=== PATIENT | male | born 1960 | race Caucasian/White ===

== ENCOUNTER 2017-06-22 22:55 | Emergency (ER) | payer SELFPAY ==
[~2017-06-22] VITALS: Ht 162.6 cm; Wt 102.1 kg
[~2017-06-22 22:55] MED LIST: ALBUTEROL0.09 MG/A1 IH; AMILORIDE/HCTZ1 TAB PO; ATENOLOL50 MG PO; BIAXIN500 MG PO; CIPRO 500MG TA500 MG PO; IBU800 MG PO; KEFLEX 500MG.500 MG PO; LEVAQUIN 750 M750 MG PO; LISINOPRIL40 MG PO; LORTAB 5/500 501 TAB PO; MEDROL 4MG. DOSE4 MG PO; METFORMIN 500M500 MG PO; PROCARDIA10 MG PO; PROVENTIL0.09 MG/AC IH; ROBITUSSIN120 ML/BOT PO; TESSALON PERLE100 MG PO; TESSALON PERLE200 MG PO; ZITHROMAX Z PA250 MG PO
[2017-06-22 23:11] LABS: ALLEN'S TEST PATIENT UNABLE; ARTERIAL ABE -9.7 MMOL/L (-2.4-+2.3); ARTERIAL PO2 58.1 MMHG (80-100); ARTERIAL TCO2 22.6 MMOL/L (23-27)
--- NOTE | 2017-06-22 23:21 | Emergency Room Report ---
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 N Clinical Suspician of Infection? Y Mental Status: 1 - Regular (Normal Baseline) Sepsis Risk:Severe Sepsis Risk Have you (or family members/close friends) recently traveled outside the [place]? N If Yes, where/when: Have you had exposure to infectious disease within the past month? N TB? Other? Specify: Source patient, RN notes reviewed, family, old records Exam Limitations no limitations Comment sudden onset of sob with no chest pain - pt has not been compliant with meds sec to kali issues - Cardiac Chest Pain Chest pain indicative of cardiac No Timing/Duration this evening Severity moderate ALLERGIES Coded Allergies: Penicillins (06/22/17) Home Medications Reported Medications No Known Home Medications History Medical History General CAD? No Angina: No NV: No Hypertension? Yes Hyperlipidemia? No CHF? No DVT? No PE? No COPD? Yes Asthma? No Anemia? No GERD? No Gastric ulcers? No GI Bleed? No Hernia? No Thyroid Problems? No Hypothyroidism? No CVA? No Seizures? No Diabetes? Yes Insulin Dependent: No Insulin Pump: No Home FSBS? No Renal Insuffiency? No End Stage Renal Disease? No UTI? No Stones? No BPH? No GB Disease: No Nephritic Syndrome? No Asplenia? No Hepatitis? No Sickle Cell Disease? No Arthritis? No Migraines? No Cataracts? No Glaucoma? No MRSA? No HIV? No TB? No Anxiety? No Depression? No Cancer? No Immunization Hx DT/Tetanus < 1 YR AGO Flu Refused Pneumonia Refuses Surgical Hx Previous Surgery?Y EAR DRUM-R Family History Family Hx Diabetes Yes CAD No Hypertension Yes Hyperlipidemia No Cancer No TB No Social History Smoking Hx Smoker: Current Every Day Smoker Tobacco: Yes Type Cigarettes Packs/day 1 1/2 - 2 Packs Are you/the child exposed to second-hand smoke: No Alcohol Alcohol: No Drugs none Review of Systems All Other Systems Reviewed and Negative Constitutional denies fever Eyes denies drainage ENT denies: ear discharge, epistaxis, throat pain. Respiratory see HPI, cough, shortness of breath, wheezing Cardiovascular see HPI, denies chest pain, denies palpitations, denies syncope, other Gastrointestinal denies abdominal pain, denies diarrhea, denies vomiting Genitourinary denies: dysuria, frequency, hesitancy, hematuria. Musculoskeletal denies back pain, denies joint pain, denies joint swelling, denies neck pain Skin denies rash Psychiatric/Neurological denies anxiety, denies headache Physical Exam Vital Signs Vital Signs Date Time Temp Pulse Resp B/P Pulse O2 O2 Flow FiO2 Ox Delivery Rate 06/23 0432 97.8 82 20 144/89 93 06/23 0404 97.8 82 20 163/89 94 06/23 0310 97.8 87 22 153/89 90 06/23 0224 91 22 198/96 97 10 06/23 0153 97.8 95 24 219/113 97 06/23 0143 100 26 209/115 99 10 06/23 0032 45 06/23 0032 97.8 103 26 243/122 99 06/23 0031 99 06/23 0007 99 26 235/102 99 10 06/22 2329 97.8 129 34 269/149 96 06/22 2316 86 06/22 2302 40 68 5 06/22 2258 97.8 144 40 180/96 68 - WBC >12,000 or <4,000 or 10% bands? 2 or more SIRS Criteria Met? B/P:243/122 MAP:124 Creatinine >2.0? UA output<0.5ml/kg/hr for 2 hrs? Platelet count >100,000? Lactate >2.0mmol/1? INR >1.2 or PTT > than 60 sec? Evidence of Organ Dysfunction? Provider documented clinical suspician of infection? Y Sepsis Criteria Count: 3 Sepsis Risk: Severe Sepsis Risk General Appearance no apparent distress Eye Exam - bilateral eye PERRL, bilateral eye EOMI Ear, Nose, Throat normal ENT inspection Neck supple Respiratory Status No: respiratory distress. Lung Sounds bilateral: decreased breath sounds. 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 No Results/Orders Laboratory Tests 06/23/17208: Troponin I 0.10 H 06/23/17208: Lactic Acid 1.2 06/23/17202: ABG pH 7.39, ABG pCO2 (Temp Corrct 41.5, ABG pO2 (Temp Correct 100.8 H, ABG HCO3 24.7, ABG Total CO2 26.0, ABG O2 Sat (Calculated) 97.8, ABG Base Excess - 0.2, Roldan Test ACCEPTABLE 06/23/17 0029: Chlamy pneum (TEM-PCR) NOT DETECTED, Adenovirus (PCR) NOT DETECTED, B. pertussis DNA (PCR) NOT DETECTED, Coronavirus OC43 (PCR) NOT DETECTED, Coronavirus HKU1 ( PCR) NOT DETECTED, Coronavirus 229E (PCR) NOT DETECTED, Coronavirus NL63 (PCR) NOT DETECTED, Human Metapneumovir PCR NOT DETECTED, Influenza A (H1) PCR NOT DETECTED, Influ A (H1N1/09) PCR NOT DETECTED, Influenza A (H3) PCR NOT DETECTED, Influenza Type A (PCR) NOT DETECTED, Influenza Type B (PCR) NOT DETECTED, M. pneumoniae (PCR) NOT DETECTED, Parainfluenza 1 (PCR) NOT DETECTED, Parainfluenza 2 (PCR) NOT DETECTED, Parainfluenza 3 (PCR) NOT DETECTED, Parainfluenza 4 (PCR) NOT DETECTED, RSV (PCR) NOT DETECTED, Entero/Rhino (PCR) NOT DETECTED 06/22/172314: Lactic Acid 5.1 H 06/22/172314: Sodium 137, Potassium 3.6, Chloride 100, Carbon Dioxide 26, BUN 23 H, Creatinine 1.7 H, Estimated Creat Clear 70, Estimated GFR (MDRD) 42, Glucose 261 H, Calcium 8.8, Total Bilirubin 0.3, AST 37, ALT 31, Alkaline Phosphatase 200 H, Creatine Kinase 69, CK-MB (CK-2) Rel Index 2.3, CK and CKMB Interp 1.6, Troponin I 0.08 H, Total Protein 8.2, Albumin 3.6, Globulin 4.6 H, Albumin/ Globulin Ratio 0.8 L, WBC 23.6 *H, RBC 5.98, Hgb 16.8, Hct 53.8 H, MCV 90.0, RDW 12.9, Plt Count 287, MPV 10.6 H, Gran % 37.0, Gran # 8.7 H, Total Counted 100, Lymphocytes % 49.7, Monocytes % 8.2, Eosinophils % 3.3, Basophils % 1.8, Neutrophils 26 L, Band Neutrophils 5, Lymphocytes (Manual) 62 H, Lymphocytes # 11.7 H, Monocytes (Manual) 2, Monocytes # 1.9 H, Eosinophils # 0.8 H, Eosinophils # (Manual) 5 H, Basophils # 0.4 H, Platelet Estimate NORMAL, Hypochromasia 1+, Rouleaux 1+, PUBS MCHC 31.3 L, MCH 28.2 06/22/17 2305: ABG pH 7.07 *L, ABG pCO2 (Temp Corrct 71.3 H, ABG pO2 (Temp Correct 58.1 L, ABG HCO3 20.4 L, ABG Total CO2 22.6 L, ABG O2 Sat (Calculated) 80.6 *L, ABG Base Excess -9.7 L, Roldan Test PATIENT UNABLE Current Medication Orders Sig/Miquel Start time Last Medication Dose Route Stop Time Status Admin Clonidine HCl 0.1 MG ONCE ONE 06/23 245 DC 06/23 PO 06/23 024 0235 Clonidine HCl 0 .STK-MED ONE 06/23 234 DC .ROUTE Azithromycin 500 MG ONCE ONE 06/23 100 DC 06/23 Sodium Chloride 250 ML IV 06/23 015 0105 Ceftriaxone Sodium 1 GM ONCE ONE 06/23 100 DCr 06/23 Sodium Chloride 50 ML IV 06/23 012 0104 Clonidine HCl 0.1 MG ONCE ONE 06/23 100 DC 06/23 PO 06/23 101 0105 Clonidine HCl 0 .STK-MED ONE 06/23 59 DC .ROUTE Azithromycin 0 .STK-MED ONE 06/23 58 DC IV Ceftriaxone Sodium 0 .STK-MED ONE 06/23 58 DCr IV Sodium Chloride 50 ML .STK-MED ONE 06/23 58 DC IV Sodium Chloride 250 ML .STK-MED ONE 06/23 57 DC IV Methylprednisolone 125 MG ONCE ONE 06/23 30 DC 06/23 Sodium Succinate IV 06/23 31 0029 Methylprednisolone 0 .STK-MED ONE 06/23 0027 DC Sodium Succinate .ROUTE Furosemide 40 MG ONCE ONE 06/22 2330 DC 06/22 IV 06/22 Nitroglycerin 1 IN ONCE ONE 06/22 2330 DC 06/22 TP 06/22 Furosemide 0 .STK-MED ONE 06/22 2325 DC .ROUTE Nitroglycerin 0 .STK-MED ONE 06/22 2324 DC .ROUTE Albuterol/Ipratropium 3 ML ONCE ONE 06/22 2315 DC 06/22 INH 06/22 2316 231 Sodium Chloride 10 ML PRN PRN 06/22 2315 AC IV 06/23 230 Albuterol/Ipratropium 0 .STK-MED ONE 06/22 2259 DC INH Orders Procedure Date/time Status ARTERIAL BLOOD GAS REQUEST 06/23 0152 Active TROPONIN I 06/23 0152 Complete UPPER RESPIRATORY PANEL, PCR 06/23 0024 Complete LACTIC ACID FOLLOW UP 06/23 0013 Complete 12 LEAD EKG-BESSON (INITIAL) 06/22 233 Active DIFFERENTIAL-WBC 06/22 231 Complete ELECTROCARDIOGRAM REQUEST 06/22 2308 Active RT REQUEST DUONEB 06/22 230 Active ARTERIAL BLOOD GAS REQUEST 06/22 2308 Active CHEST-PORTABLE 06/22 230 Active IV SALINE LOCK 06/22 2308 Active OXYGEN PER NURSE 06/22 2308 Active CULTURE, BLOOD 06/22 2308 Active LACTIC ACID 06/22 2308 Complete CBC WITH AUTO DIFF 06/22 2308 Complete CARDIAC ENZYMES 06/22 2308 Complete CHEM 12 PROFILE 06/22 2308 Complete OXYGEN PER HOUR 06/22 0034 Complete BIPAP-INITIAL SETUP 06/22 0034 Complete CM/EKG CM/EKG 1 Monitor Rhythm Sinus Tachycardia EKG compared w/(date of old), non-spec. ST/Twave chgs CM/EKG 2 Monitor Rhythm Sinus Tachycardia EKG compared w/(date of old), non-spec. ST/Twave chgs XRAY/CT/US XRAY/CT/US XRAY chest XR interpretation by reviewed by me Xray Results abnormal (inflitrate cm) Departure Departure Time of Disposition 0431 Disposition Against Medical Advice Clinical Impression Primary Impression: Hypertensive emergency Secondary Impressions: CAP (community acquired pneumonia) Qualifiers: Laterality: unspecified laterality Qualified Code: J18.9 - Pneumonia, unspecified organism Condition STABLE Referrals NO REFERRAL (PCP) Patient Instructions DI for Pneumonia -- Adult Additional Instructions see pcp jermaine for follow up Prescriptions Current Visit Scripts CEPHALEXIN (Keflex 500MG Capsule) 500 MG PO Q8H #21 CAP Amlodipine Besylate (Norvasc) 5 MG PO DAILY #30 TAB ED Critical Care Critical Care No at 0438
[2017-06-22 23:29] LABS: LYMPH # 11.7 K/mm3 (0.7-4.5); LYMPH % 49.7 % (10-50)
[2017-06-22 23:36] LABS: HEMOGLOBIN 16.8 g/dL (14.1-18.0)
[2017-06-22 23:53] LABS: NEUTROPHILS 26 % (42-76)
[2017-06-23 00:33] LABS: CORONAVIRUS 229E NOT DETECTED (NOT DETECTE); CORONAVIRUS HKU 1 NOT DETECTED (NOT DETECTE); CORONAVIRUS NL63 NOT DETECTED (NOT DETECTE); CORONAVIRUS OC43 NOT DETECTED (NOT DETECTE); RHINOVIRUS/ENTEROVIRUS NOT DETECTED (NOT DETECTE)
[2017-06-23 02:06] LABS: ARTERIAL PO2 100.8 MMHG (80-100)
[2017-06-23 02:07] LABS: ARTERIAL ABE -0.2 MMOL/L (-2.4-+2.3)
[2017-06-23 02:08] LABS: ALLEN'S TEST ACCEPTABLE
[2017-06-23] MEDS ORDERED: NORVASC 5MG. TAB5 MG PO (04:34)
[2017-06-23] MEDS ORDERED: KEFLEX 500MG.500 MG PO (04:34)
[2017-06-23 04:41] VITALS: BP 144/89
--- NOTE | 2017-06-23 05:23 | RADIOLOGY REPORT PS360 ---
CHEST-PORTABLE HISTORY: C/O SOB HYPOXIA ORDERING PHYSICIAN: Feng James MD PATIENT AGE: 56 years COMPARISON: 11/09/2014 FINDINGS: There is mild cardiomegaly. The pulmonary vessels however do not appear engorged. There is diffuse bilateral mid and lower lobe alveolar opacification . There is a small right effusion. no acute bony anomalies. IMPRESSION: Diffuse bilateral mid and lower lung airspace disease. This may be due to diffuse pneumonia or pulmonary edema. There is a small right effusion
[2017-06-24] MEDS ORDERED: LISINOPRIL40 MG PO (03:18)
[2017-06-24] MEDS ORDERED: ATENOLOL50 MG PO (03:18)
[2017-06-24] MEDS ORDERED: METFORMIN500 MG PO (03:19)
[2017-06-24] MEDS ORDERED: AMILORIDE HCL/H1 TAB PO (03:19)
== END 2017-06-23 04:42 | disposition left against medical advice (07) ==
LOC: ER 22:55
PROVIDERS: Emergency Medicine
DX: J18.9 Pneumonia, unspecified organism (principal); I10 Essential (primary) hypertension; E11.9 Type 2 diabetes mellitus without complications; F17.210 Nicotine dependence, cigarettes, uncomplicated
CPT/HCPCS: J0456

== ENCOUNTER 2017-06-23 19:01 | Inpatient (IN) | payer SELFPAY ==
[~2017-06-23] VITALS: Ht 160 cm; Wt 83.9 kg
[~2017-06-23 19:01] MED LIST changes: +NORVASC 5MG. TAB5 MG PO
[2017-06-23 19:04] VITALS: BP 264/139
--- OUTSIDE RECORDS SUMMARY | 2017-06-23 19:12 | External Medical Summary Rpt | CCD ---
Author Author , JAIME Organization JAIME Address Unknown Phone [email or web address] Purpose Continuity of Care Document - 06-23-2017 through 2016 Problems Code Diagnosis DOS Provider Status E86.0 DEHYDRATION I10 ESSENTIAL (PRIMARY) HYPERTENSIO N J18.9 PNEUMONIA, UNSPECIFIED ORGANISM J96.90 RESPIRATORY FAILURE, UNSP, UNSP W HYPOXIA OR HYPERCAPNIA R73.9 HYPERGLYCEM IA, UNSPECIFIED Results Labs Lab Lab Date Result Refere Interp Status Commen Order Detail nces retati t Range on Serum or plasma troponin i.cardiac measu (06-23-2017 02:09) Serum = 0.10 0.00-0. complet or 017 ng/mL 06 ed plasma 02:09 troponi n i.cardi ac measu Comment: 0.04 - 0.49 IS AN INDETERMINANT ZONE Comment: And can be consistent with the following diseases: Comment: Comment: Trauma Critically ill patients Rodriguez >30% TBSA Comment: CHF Hypothyroidism Amyloidosis Comment: Hypertension Myocarditis Sepsis Comment: Hypotension Rhabdomyolysis Vital exhaust. Comment: Postop surgery Pulmonary embolism CVA Comment: Renal failure Acute neurological disease Atrial fib. Lactate ser/plas (06-23-2017 02:09) Lactate = 1.2 0.4-2.0 complet 017 MMOL/L ed ser/consuelo 02:09 s
--- OUTSIDE RECORDS SUMMARY | 2017-06-23 19:12 | External Medical Summary Rpt | CCD ---
Author Author , JAIME Organization JAIME Address Unknown Phone [email or web address] Purpose Continuity of Care Document - 06-23-2017 [...]
--- OUTSIDE RECORDS SUMMARY | 2017-06-23 19:13 | External Medical Summary Rpt | CCD ---
Demographics Preferred Language Moroccan Marital Status Unknown Latter-Day Affiliation Unknown Race Unknown Ethnic Group Unknown Author Author , JAIME SANDOVAL Address Unknown Phone Immunization No patient found.
--- OUTSIDE RECORDS SUMMARY | 2017-06-23 19:13 | External Medical Summary Rpt | CCD ---
Author Author [employer] Organization [employer] Address Unknown Phone Unavailable Purpose Continuity of Care Document - through 2016
--- OUTSIDE RECORDS SUMMARY | 2017-06-23 19:13 | External Medical Summary Rpt | CCD ---
Demographics Preferred Language Singaporean Marital Status Unknown Samaritan Affiliation Unknown Race Unknown Ethnic Group Unknown Author Author , JAIME SANDOVAL Address Unknown Phone Immunization No patient found.
[2017-06-23 19:25] LABS: HEMOGLOBIN 15.9 g/dL (14.1-18.0); LYMPH # 3.1 K/mm3 (0.7-4.5); LYMPH % 17.4 % (10-50)
--- NOTE | 2017-06-23 19:31 | Emergency Room Report ---
History of Present Illness Time Seen by 1908 Presenting Problem in Triage Pt arrived:Wheelchair Presenting Problem:c/o sob and hypoxia. 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 N Clinical Suspician of Infection? Y Mental Status: 1 - Regular (Normal Baseline) Sepsis Risk:Severe Sepsis Risk Have you (or family members/close friends) recently traveled outside the [place]? N If Yes, where/when: Have you had exposure to infectious disease within the past month? N TB? Other? Specify: 56 years old white male smoker with chronic obstructive pulmonary disease. He is out of medication be due to medical insurance issues. He was seen yesterday and was advised to be admitted and he refused and signed the against medical advise. Today he had a recurrence of his symptoms after he smokes 6 cigarettes today. He feels short of breath and presented with low sats. He remarkably improved after one breathing treatment. He has a productive yellow sputum. Source patient, RN notes reviewed, family Exam Limitations no limitations ALLERGIES Coded Allergies: Penicillins (06/22/17) Home Medications Active Scripts CEPHALEXIN (Keflex 500MG Capsule) 500 MG PO Q8H #21 CAP Prov: 06/23/17 Amlodipine Besylate (Norvasc) 5 MG PO DAILY #30 TAB Prov: 06/23/17 History Medical History General CAD? No Angina: No [place]: No Hypertension? Yes Hyperlipidemia? No CHF? No DVT? No PE? No COPD? Yes Asthma? No Anemia? No GERD? No Gastric ulcers? No GI Bleed? No Hernia? No Thyroid Problems? No Hypothyroidism? No CVA? No Seizures? No Diabetes? Yes Insulin Dependent: No Insulin Pump: No Home FSBS? No Renal Insuffiency? No End Stage Renal Disease? No UTI? No Stones? No BPH? No GB Disease: No Nephritic Syndrome? No Asplenia? No Hepatitis? No Sickle Cell Disease? No Arthritis? No Migraines? No Cataracts? No Glaucoma? No MRSA? No HIV? No TB? No Anxiety? No Depression? No Cancer? No Immunization Hx DT/Tetanus < 1 YR AGO Flu Refused Pneumonia Refuses Surgical Hx Previous Surgery?Y EAR DRUM-R Family History Family Hx Diabetes Yes CAD No Hypertension Yes Hyperlipidemia No Cancer No TB No Social History Smoking Hx Smoker: Current Every Day Smoker Tobacco: Yes Type Cigarettes Packs/day 1 1/2 - 2 Packs Alcohol Alcohol: No Review of Systems All Other Systems Reviewed and Negative Constitutional no symptoms reported Eyes no symptoms reported ENT no symptoms reported. Respiratory see HPI, cough, shortness of breath Cardiovascular no symptoms reported Gastrointestinal no symptoms reported Genitourinary no symptoms reported. Musculoskeletal no symptoms reported Skin no symptoms reported Psychiatric/Neurological no symptoms reported Physical Exam Vital Signs Vital Signs Date Time Temp Pulse Resp B/P Pulse O2 O2 Flow FiO2 Ox Delivery Rate 06/23 1956 98.5 95 24 196/95 98 06/23 1904 98.5 135 36 264/139 78 - WBC >12,000 or <4,000 or 10% bands? 2 or more SIRS Criteria Met? B/P:264/139 MAP:180 Creatinine >2.0? UA output<0.5ml/kg/hr for 2 hrs? Platelet count >100,000? Lactate >2.0mmol/1? INR >1.2 or PTT > than 60 sec? Evidence of Organ Dysfunction? Provider documented clinical suspician of infection? Y Sepsis Criteria Count: 2 Sepsis Risk: Severe Sepsis Risk General Appearance normal appearance, WD/WN Eye Exam - bilateral eye normal exam, bilateral eye PERRL, bilateral eye EOMI Ear, Nose, Throat hearing grossly normal, normal ENT inspection Neck normal inspection, non-tender, supple, full range of motion Respiratory Status Yes: trachea midline, chest symmetrical, non tender chest. No: respiratory distress. Lung Sounds bilateral: lungs clear, decreased breath sounds. 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 No Results/Orders Laboratory Tests 06/23/171914: Creatine Kinase 107, CK-MB (CK-2) Rel Index 3.2, CK and CKMB Interp 3.4, Troponin I 0.07 H 06/23/171914: Sodium 132 L, Potassium 3.9, Chloride 96 L, Carbon Dioxide 27, BUN 27 H, Creatinine 1.9 H, Estimated Creat Clear 55, Estimated GFR (MDRD) 37, Glucose 348 H, Calcium 9.1, Total Bilirubin 0.4, AST 25, ALT 29, Alkaline Phosphatase 180 H, B-Natriuretic Peptide 1090 H, Total Protein 8.1, Albumin 3.5, Globulin 4.6 H, Albumin/Globulin Ratio 0.8 L, WBC 18.1 H, RBC 5.67, Hgb 15.9, Hct 50.2 , MCV 88.5, RDW 13.1, Plt Count 254, MPV 10.4, Gran % 74.1, Gran # 13.4 H, Lymphocytes % 17.4, Monocytes % 8.4, Eosinophils % 0.1, Basophils % 0.1, Lymphocytes # 3.1, Monocytes # 1.5 H, Eosinophils # 0.0, Basophils # 0.0, PUBS MCHC 31.7 L, MCH 28.0 Current Medication Orders Sig/Miquel Start time Last Medication Dose Route Stop Time Status Admin Levofloxacin/Dextrose 150 ML ONCE ONE 06/23 1945 CKDr 06/23 IV 06/23 Sodium Chloride 1,000 ML .Q4H 06/23 1945 AC 06/23 IV 06/23 Sodium Chloride 10 ML PRN PRN 06/23 1945 AC IV 06/24 1932 Sodium Chloride 1,000 ML .STK-MED ONE 06/23 1936 DC IV Albuterol/Ipratropium 3 ML ONCE ONE 06/23 1930 DC 06/23 INH 06/23 Albuterol/Ipratropium 3 ML ONCE ONE 06/23 1930 DC INH 06/23 1931 Nitroglycerin 1 IN ONCE ONE 06/23 1930 DC 06/23 TP 06/23 Sodium Chloride 10 ML PRN PRN 06/23 1930 AC IV 06/24 1919 Levofloxacin/Dextrose 150 ML .STK-MED ONE 06/23 1929 DC IV Nitroglycerin 0 .STK-MED ONE 06/23 1928 DC .ROUTE Albuterol/Ipratropium 0 .STK-MED ONE 06/23 1906 DC INH Orders Procedure Date/time Status Decision to admit 06/23 1958 Active CULTURE, SPUTUM 06/23 1932 Active CULTURE, BLOOD 06/23 1932 Active LACTIC ACID 06/23 1932 Active RT REQUEST DUONEB 06/23 1926 Active CHEST(2 VIEWS-NOT PORTABLE) 06/23 1926 Active RT REQUEST DUONEB 06/23 1923 Active ELECTROCARDIOGRAM REQUEST 06/23 1921 Active 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 of ischemic chgs, no ectopy, normal QRS, normal [place] Comments Sinus tachycardia wanted to baseline artifacts normal P-wave QRS nonspecific ST- T segment changes Departure Departure Time of Disposition 1928 Disposition Still a Patient Clinical Impression Primary Impression: COPD exacerbation Secondary Impressions: Community acquired bacterial pneumonia, Hypertensive emergency, NSTEMI (non-ST elevated myocardial infarction), Tobacco use Condition STABLE Referrals DIANA MAHAN,M S ([facility]) Additional Instructions The patient received DuoNeb with good results obtained chest x-ray that, nitroglycerin paste for blood pressure control. i REVIEWED His lab work from yesterday including blood gases. His eyes. Chest x- ray report which was positive for diffuse lung disease mostly in the RIGHT lower lobe and LEFT upper lobe. I discussed with the patient about admission and he was agreeable. I contacted Dr. Terry for admission, CONTINUE LEVAQUINAND NTG PAST, SERIAL ENZYMES... Discharge Counseling Counseled pt/family regarding diagnosis, test results, medications/RX, follow up needs ED Critical Care Critical Care No If Critical Care minutes are documented, the time involved in the performance of seperately reportable procedures was not counted toward critical care time documented. I directly delivered medical care to this critically ill and/or injured patient. Timely evaluation and treatment was necessary to address the significant organ system(s) dysfunction present in this patient. at 2004
--- OUTSIDE RECORDS SUMMARY | 2017-06-23 20:06 | External Medical Summary Rpt | CCD ---
Author Author , JAIME SANDOVAL Address Unknown Phone Purpose Continuity of Care Document - 06-23-2017 through 2016 Problems Code Diagnosis DOS Provider Status E86.0 DEHYDRATION I10 ESSENTIAL (PRIMARY) HYPERTENSIO N J18.9 PNEUMONIA, UNSPECIFIED ORGANISM J96.90 RESPIRATORY FAILURE, UNSP, UNSP W HYPOXIA OR HYPERCAPNIA R73.9 HYPERGLYCEM IA, UNSPECIFIED Results Labs Lab Lab Date Result Refere Interp Status Commen Order Detail nces retati t Range on CBC w auto diff (06-23-2017 19:15) Baso % = 0.1 % 0.1-2.0 complet 017 ed 19:15 Automat = 0.0 0.0-0.4 complet ed 017 K/mm3 ed blood 19:15 eosinop hil count Automat = 0.1 % 0.1-12. complet ed 017 0 ed blood 19:15 eosinop hils/10 0 leukocy t Blood = 13.4 1.3-8.0 complet granulo 017 K/mm3 ed cytes 19:15 automat ed count (numb Granulo = 74.1 37.0-80 complet cyte 017 % .0 ed percent 19:15 age Blood = 50.2 42.0-52 complet hematoc 017 % .0 ed rit 19:15 (volume fractio n) Blood = 15.9 14.1-18 complet hemoglo 017 g/dL .0 ed bin 19:15 measure ment (mass/v olum Absolut = 3.1 0.7-4.5 complet e 017 K/mm3 ed lymphoc 19:15 yte count Lymphoc = 17.4 10-50 complet yte 017 % ed count, 19:15 blood, automat ed Mean = 28.0 27-31.2 complet corpusc 017 pg ed ular 19:15 hemoglo bin (MCH) determ Automat = 31.7 31.8-35 complet ed 017 g/dl .4 ed erythro 19:15 cyte mean corpusc ular h Automat = 88.5 82.2-97 complet ed 017 fl .8 ed erythro 19:15 cyte mean corpusc ular v Absolut = 1.5 0.1-1.0 complet e 017 K/mm3 ed monocyt 19:15 e count Frontier % = 8.4 % 1.7-9.3 complet 017 ed 19:15 Automat = 10.4 7.4-10. complet ed 017 fl 4 ed blood 19:15 platele t mean volume rochelle Blood = 254 142-424 complet platele 017 K/mm3 ed t count 19:15 Red = 5.67 4.6-6.2 complet blood 017 M/mm3 ed cell 19:15 count Automat = 13.1 11.5-17 complet ed 017 % .5 ed erythro 19:15 cyte distrib ution width Blood = 18.1 4.8-10. complet leukocy 017 K/MM3 8 ed stacie 19:15 count (number /volume ) Automat = 0.0 0-0.2 complet ed 017 K/MM3 ed blood 19:15 basophi l count (count/ vo Brain natriuretic peptide (06-23-2017 19:15) Brain = 1090 0-100 complet natriur 017 pg/mL ed etic 19:15 peptide Comprehensive metabolic panel (06-23-2017 19:15) Serum = 0.8 1.1-1.8 complet or 017 ed plasma 19:15 albumin /globul in mass ra Serum = 3.5 3.4-5.0 complet or 017 gm/dL ed plasma 19:15 albumin measure ment (mas Serum = 180 46-116 complet or 017 U/L ed plasma 19:15 alkalin e phospha tase rochelle Serum = 0.4 0.2-1.0 complet or 017 mg/dL ed plasma 19:15 total bilirub in measure m Serum = 27 7-18 complet or 017 mg/dL ed plasma 19:15 urea nitroge n measure men Serum = 9.1 8.5-10. complet or 017 mg/dL 1 ed plasma 19:15 calcium measure ment (mas Serum = 96 98-107 complet or 017 mmoL/L ed plasma 19:15 chlorid e measure ment (mo Carbon = 27 21.0-32 complet dioxide 017 mmoL/L .0 ed 19:15 measure ment Serum = 1.9 0.70-1. complet or 017 mg/dL 30 ed plasma 19:15 creatin ine measure ment ( Estimat = 55 50-200 complet ion of 017 ML/MIN ed creatin 19:15 ine renal clearan ce Estimat = 37 >60 complet ed 017 ML/MIN ed glomeru 19:15 lar filtrat ion rate (GF Comment: REFERENCE RANGE: >60 ML/MIN/1.73 SQUARE METERS Comment: If this patient is -Maltese, then multiply the Comment: result by 1.210. Serum = 4.6 1.3-3.2 complet globuli 017 gm/dL ed n 19:15 measure ment (mass/v olume) Serum = 348 74-106 complet or 017 mg/dL ed plasma 19:15 glucose measure ment (mas Serum = 3.9 3.5-5.1 complet potassi 017 mmoL/L ed um 19:15 measure ment Serum = 132 136-145 complet sodium 017 mmoL/L ed measure 19:15 ment Serum = 25 15-37 complet or 017 U/L ed plasma 19:15 asparta te aminotr ansfera ALT = 29 12-78 complet (SGPT) 017 U/L ed ser/consuelo 19:15 s Protein = 8.1 6.4-8.2 complet total 017 gm/dL ed ser/consuelo 19:15 s Cardiac enzymes (06-23-2017 19:15) Serum = 3.2 0-4.0 complet or 017 U/L ed plasma 19:15 creatin e kinase MB (CK-M Serum = 3.4 0.0-3.6 complet or 017 ng/mL ed plasma 19:15 creatin e kinase MB measu Serum = 107 39-308 complet or 017 U/L ed plasma 19:15 creatin e kinase measure m Serum = 0.07 0.00-0. complet or 017 ng/mL 06 ed plasma 19:15 troponi n i.cardi ac measu Comment: 0.04 - 0.49 IS AN INDETERMINANT ZONE Comment: And can be consistent with the following diseases: Comment: Comment: Trauma Critically ill patients Rodriguez >30% TBSA Comment: CHF Hypothyroidism Amyloidosis Comment: Hypertension Myocarditis Sepsis Comment: Hypotension Rhabdomyolysis Vital exhaust. Comment: Postop surgery Pulmonary embolism CVA Comment: Renal failure Acute neurological disease Atrial fib. Serum or plasma troponin i.cardiac measu (06-23-2017 [...]
--- OUTSIDE RECORDS SUMMARY | 2017-06-23 20:06 | External Medical Summary Rpt | CCD ---
Author Author , JAIME SANDOVAL Address Unknown Phone [email or web address] Purpose Continuity of Care Document - 06-23-2017 [...] 017 K/mm3 ed monocyt 19:15 e count [place] % = 8.4 % 1.7-9.3 complet 017 [...] SQUARE METERS Comment: If this patient is -Surinamese, then multiply the Comment: result by 1.210. [...]
--- OUTSIDE RECORDS SUMMARY | 2017-06-23 20:07 | External Medical Summary Rpt | CCD ---
Demographics Preferred Language Iraqi Marital Status Unknown Taoism Affiliation Unknown Race Unknown Ethnic Group Unknown Author Author , JAIME SANDOVAL Address Unknown Phone Immunization No patient found.
--- OUTSIDE RECORDS SUMMARY | 2017-06-23 20:07 | External Medical Summary Rpt | CCD ---
Demographics Preferred Language Nicaraguan Marital Status Unknown Mormonism Affiliation Unknown Race Unknown Ethnic Group Unknown Author Author , JAIME SANDOVAL Address Unknown Phone Immunization No patient found.
[2017-06-23 21:03] VITALS: BP 210/108
[2017-06-23 21:06] VITALS: BP 210/108
[2017-06-23 22:15] VITALS: BP 193/91
--- NOTE | 2017-06-23 23:20 | RADIOLOGY REPORT PS360 ---
CHEST(2 VIEWS-NOT PORTABLE) HISTORY: Shortness of air soa ORDERING PHYSICIAN: Donal James MD PATIENT AGE: 56 years COMPARISON: 06/22/2017 FINDINGS: Cardiomegaly with pulmonary is congestion consistent with CHF. There is a small right-sided effusion. Left lower lobe airspace disease has improved. Persistent opacity is present in the right lower lobe consistent with pneumonia which is slightly improved. IMPRESSION: 1. CHF with small right effusion. 2. Right lower lobe pneumonia slightly improved 3. Improved left lower pneumonia or edema
[2017-06-23 23:51] VITALS: BP 195/78
[2017-06-24] VITALS (8 sets, daily range): BP systolic 165–188; BP diastolic 69–90
[2017-06-24] MEDS ORDERED: ATENOLOL50 MG PO (03:18)
[2017-06-24] MEDS ORDERED: LISINOPRIL40 MG PO (03:18)
[2017-06-24] MEDS ORDERED: METFORMIN500 MG PO (03:19)
[2017-06-24] MEDS ORDERED: AMILORIDE HCL/H1 TAB PO (03:19)
[2017-06-24 06:54] LABS: LYMPH # 2.9 K/mm3 (0.7-4.5); LYMPH % 21.2 % (10-50)
[2017-06-24 06:57] LABS: HEMOGLOBIN 12.9 g/dL (14.1-18.0)
--- NOTE | 2017-06-24 08:59 | PHARMACY CLINIC NOTE ---
Patient Demographics Patient Demographics Admission date: 06/23/17 Date: 06/24/17 Time: 0858 Allergies Coded Allergies: Penicillins (-- 06/23/17) HEIGHT- FT: 5 IN: 3.00 K.916 VTE General Information Labs: Laboratory Tests 06/24 06/23 0645 1915 Hematology Hgb (14.1 - 18.0 g/dL) 12.9 L 15.9 Hct (42.0 - 52.0 %) 40.8 L 50.2 Plt Count (142 - 424 K/mm3) 161 254 Disclaimer The following section includes nursing documentation that has been pulled in for pharmacy review. Patient's VTE score: 3 Patient's VTE Risk: LOW RISK Clinical trial participant? No VTE prophylaxis NQF [id number] VTE prophylaxis ordered? Yes Type of prophylaxis/treatment: Lovenox at 0858
--- NOTE | 2017-06-24 14:04 | HISTORY AND PHYSICAL REPORT ---
Demographics: Admit date: 06/23/17 Chief complaint: copd, sob PRIMARY DIAGNOSIS: CAP; EX COPD; HTN EMERGENCY; NSTEMI Allergies: Coded Allergies: Penicillins (-- 06/23/17) History of present illness: History of present illness: 56 years old male smoker with chronic obstructive pulmonary disease. He is out of medication be due to medical insurance issues. He was seen yesterday in ed and refused admission and left ed ama. presented to ed with c/o sob and productive yellow sputum.He improved after one breathing treatment while in ed. patient admitted for pneumonia Past medical history: Family HX Diabetes Yes CAD No Hypertension Yes Hyperlipidemia No Cancer No TB No Immunization HX DT/Tetanus < 1 YR AGO Flu Refused Pneumonia Refuses TB Test in last year No General CAD? No Angina: No MA: No Hypertension? Yes Hyperlipidemia? No CHF? No DVT? No PE? No COPD? Yes Asthma? No Anemia? No GERD? No Gastric ulcers? No GI Bleed? No Hernia? No Thyroid Problems? No Hypothyroidism? No CVA? No Seizures? No Diabetes? Yes Insulin Dependent: No Insulin Pump: No Home FSBS? No Renal Insuffiency? No UTI? No Stones? No BPH? No GB Disease: No Nephritic Syndrome? No Asplenia? No Hepatitis? No Sickle Cell Disease? No Arthritis? No Migraines? No Cataracts? No Glaucoma? No MRSA? No HIV? No TB? No Anxiety? No Depression? No Cancer? No Past Surgical HX Previous Surgery?Y EAR DRUM-R Current home meds: Reported Medications Lisinopril (Lisinopril 40MG) 40 MG PO DAILY ATENOLOL (Atenolol 50MG) 50 MG PO BID AMILORIDE/HYDROCHLOROTHIAZIDE (Amiloride HCl-Hctz 5-50 MG Tab) 1 TAB PO DAILY Metformin HCL (Metformin) 500 MG PO BID Social Hx: Smoking HX Tobacco Yes Type Cigarettes Packs/day < 1 PACK Alcohol Alcohol: No Hx of Drug Use Drug Use? No Review of systems: Constitutional No: no symptoms reported. Respiratory see HPI, shortness of breath, SOB with excertion, SOB at rest. Cardiovascular see HPI Gastrointestinal/Abdominal No no symptoms reported Genitourinary No: no symptoms reported. Musculoskeletal No: no symptoms reported. Neurological No: see HPI. Exam: Lab data for last 24 hours: Laboratory Tests 06/24/17 0645: Sodium 136, Potassium 3.2 L, Chloride 100, Carbon Dioxide 30, BUN 23 H, Creatinine 1.5 H, Estimated Creat Clear 65, Estimated GFR (MDRD) 48, Glucose 191 H, Calcium 8.8, Troponin I 0.08 H, Triglycerides 105, Cholesterol 163, LDL Cholesterol 110.0, VLDL Cholesterol 21.0, HDL Cholesterol 32.0 L, WBC 13.7 H, RBC 4.72, Hgb 12.9 L, Hct 40.8 L, MCV 86.5, RDW 13.1, Plt Count 161, MPV 10.1, Gran % 71.5, Gran # 9.8 H, Lymphocytes % 21.2, Monocytes % 6.9, Eosinophils % 0.2, Basophils % 0.2, Lymphocytes # 2.9, Monocytes # 1.0, Eosinophils # 0.0, Basophils # 0.0, PUBS MCHC 31.7 L, MCH 27.4 06/24/17114: Troponin I 0.09 H 06/23/171914: Creatine Kinase 107, CK-MB (CK-2) Rel Index 3.2, CK and CKMB Interp 3.4, Troponin I 0.07 H 06/23/171914: Sodium 132 L, Potassium 3.9, Chloride 96 L, Carbon Dioxide 27, BUN 27 H, Creatinine 1.9 H, Estimated Creat Clear 55, Estimated GFR (MDRD) 37, Glucose 348 H, Calcium 9.1, Total Bilirubin 0.4, AST 25, ALT 29, Alkaline Phosphatase 180 H, B-Natriuretic Peptide 1090 H, Total Protein 8.1, Albumin 3.5, Globulin 4.6 H, Albumin/Globulin Ratio 0.8 L, WBC 18.1 H, RBC 5.67, Hgb 15.9, Hct 50.2 , MCV 88.5, RDW 13.1, Plt Count 254, MPV 10.4, Gran % 74.1, Gran # 13.4 H, Lymphocytes % 17.4, Monocytes % 8.4, Eosinophils % 0.1, Basophils % 0.1, Lymphocytes # 3.1, Monocytes # 1.5 H, Eosinophils # 0.0, Basophils # 0.0, PUBS MCHC 31.7 L, MCH 28.0 Microbiology 06/23 2310 SPUTUM: Sputum Culture - RES 06/23 2310 SPUTUM: Gram Stain - RES 06/23 2053 BLOOD: Anaerobic Blood Culture - CAN Cancelled: PER 06/23 2053 BLOOD: Aerobic Blood Culture - CAN Cancelled: PER 06/23 2053 BLOOD: Anaerobic Blood Culture - CAN Cancelled: PER 06/23 2053 BLOOD: Aerobic Blood Culture - CAN Cancelled: PER 06/23 1932 BLOOD: Anaerobic Blood Culture - CAN Cancelled: PER PER RYAN MARMOLEJO 06/23 1932 BLOOD: Aerobic Blood Culture - CAN Cancelled: PER PER RYAN MARMOLEJO 06/23 1932 BLOOD: Anaerobic Blood Culture - CAN Cancelled: PER PER RYAN MARMOLEJO 06/23 1932 BLOOD: Aerobic Blood Culture - CAN Cancelled: PER PER RYAN MARMOLEJO Admission vital signs: 1ST Vital Signs Result Date Time Pulse Ox 78 06/23 1904 B/P 264/139 06/23 1904 Temp 98.5 06/23 1904 Pulse 135 06/23 1904 Resp 36 06/23 190 O2 Delivery OXYGEN 06/23 2103 O2 Flow Rate 2 06/23 2320 Exam General appearance: normal appearance, alert, active, awake, no acute distress Eyes: normal exam ENT: normal exam Neck: normal inspection, no carotid bruit, full range of motion Cardiovascular: normal exam, regular rate & rhythm, normal peripheral pulses Respiratory: on oxygen, diminished breath sounds, wheezing ABD: normal exam, non-distended, normal bowel sounds, soft Genitourinary: normal voiding & quantity Extremities: normal exam, moves all, warm Musculoskeletal: normal exam Skin: normal exam, intact, warm Neuro: normal exam, alert, intact, oriented Plan: Problem List 1. Pneumonia Plan: will round later today. iv antibotics at 1441
[2017-06-25] VITALS (8 sets, daily range): BP systolic 152–180; BP diastolic 60–100
[2017-06-25 06:32] LABS: LYMPH # 2.5 K/mm3 (0.7-4.5); LYMPH % 28.8 % (10-50)
[2017-06-25 06:53] LABS: HEMOGLOBIN 14.7 g/dL (14.1-18.0)
--- NOTE | 2017-06-25 08:07 | CONSULT NOTE ---
Standard Demographics Patient Demo Date of Consultation: 06/25/17 Referring Provider: Delio James MD Reason for Consultation: NSTEMI, Pneumonia PRIMARY DIAGNOSIS: CAP; EX COPD; HTN EMERGENCY; NSTEMI Problem list Problem list: 1. Tobacco use with COPD A. History of cardiopulmonary arrest and subsequent intubation and mechanical ventilation with transfer to and prolonged hospital stay in the past. Patient has no knowledge of procedures done at Hospital. 2. DM 3. HTN 4. FH of ASHD History of present illness: History of present illness: 56 years old male smoker with chronic obstructive pulmonary disease. He is out of medication be due to medical insurance issues. He was seen yesterday in ed and refused admission and left ed ama. presented to ed with c/o sob and productive yellow sputum.He improved after one breathing treatment while in ed. patient admitted for pneumonia The above per CHELITA GuerreroP for Dr. James. The patient states he had sudden onset of chest pressure as if someone was sitting on his chest associated with shortness of breath prior to evaluation in the ER on both days. He LEFT the first day due to caring for her 4-year-old daughter with no to take over care of her. He return yesterday after having secured care for her. Patient feels better today denies any pain pressure or pain or tightness at this time. EKG is sinus with NSSTTW abnormalities. Troponins are abnormal consistent with non-STEMI in setting of pneumonia. Cardiology consulted for evaluation and recommendations. Patient has a history of diabetes, hypertension and a strong family history of coronary artery disease in his brother at age 36 of a mild myocardial infarction. Patient was markedly hypertensive upon admission due to lack of finances to afford his medication. Past Medical History: General: Hypertension Yes CVA No Seizures No TB No COPD Yes Asthma No Diabetes Yes Insulin Dependent No Insulin Pump No Angina No DC No Hyperlipidemia No Urinary No Cancer No Rheumatic H.D. No Ulcers No MRSA No GB Disease No Past Surgical HX: Previous Surgery?Y EAR DRUM-R Allergies Coded Allergies: Penicillins (-- 06/23/17) Home medications: Reported Medications Lisinopril (Lisinopril 40MG) 40 MG PO DAILY ATENOLOL (Atenolol 50MG) 50 MG PO BID AMILORIDE/HYDROCHLOROTHIAZIDE (Amiloride HCl-Hctz 5-50 MG Tab) 1 TAB PO DAILY Metformin HCL (Metformin) 500 MG PO BID Current Medications: Current Medications Levofloxacin/Dextrose 150 ML 1900 IV Albuterol/Ipratropium 0 .STK-MED ONE INH (DC) Amiloride HCl 5 MG DAILY PO Hydrochlorothiazide 50 MG DAILY PO Albuterol/Ipratropium 3 ML Q6H6 INH Nitroglycerin 1 IN Q6 TP Atenolol 50 MG BID PO Lisinopril 40 MG DAILY PO Enoxaparin Sodium 80 MG QHS SC Pantoprazole Sodium 40 MG QHS IV Influenza Virus Vaccine Quadrival 0.5 ML PRN PRN IM Nicotine 21 MG DAILYP PRN TD Ondansetron HCl 4 MG Q6HP PRN IV Sodium Chloride 10 ML PRN PRN IV Levofloxacin/Dextrose 150 ML DAILY IV (DC) Sodium Chloride 10 ML PRN PRN IV (DC) Sodium Chloride 10 ML PRN PRN IV (DC) Immunization HX DT/Tetanus < 1 YR AGO Flu Refused Pneumonia Refuses TB Test in last year No Family history Family HX Family Hx Insignificant No Diabetes Yes CAD No Hypertension Yes Hyperlipidemia No Cancer No TB No Social Hx: Smoking HX Tobacco Yes Type Cigarettes Packs/day < 1 PACK Alcohol Alcohol: No Hx of Drug Use Drug Use? No Review of systems: Constitutional No: see HPI. Respiratory shortness of breath. Cardiovascular see HPI, chest pain Gastrointestinal/Abdominal No no symptoms reported Genitourinary No: no symptoms reported. Musculoskeletal No: no symptoms reported. Neurological No: no symptoms reported. Exam: Admission Vital Signs: 1ST Vital Signs Result Date Time Pulse Ox 78 06/23 190 B/P 264/139 06/23 190 Temp 98.5 06/23 190 Pulse 135 06/23 190 Resp 36 06/23 190 O2 Delivery OXYGEN 06/23 2103 O2 Flow Rate 2 06/23 2320 Last Vital Signs: Vital Signs Result Date Time O2 Flow Rate 2 06/25 557 Pulse Ox 94 06/25 557 O2 Delivery ROOM AIR 06/25 557 B/P 158/88 06/25 351 Temp 98.2 06/25 351 Pulse 65 06/25 351 Resp 18 06/25 351 Exam General appearance: alert, awake, no acute distress Neck: no carotid bruit, no JVD Cardiovascular: regular rate & rhythm, no murmur Respiratory: markedly decreased breath sounds bilaterally. No appreciable wheezing at this time but rhonchi noted bilaterally. ABD: soft, no tenderness Extremities: moves all, no peripheral edema Neuro: alert, intact, oriented Laboratory data: Laboratory Tests 06/25/1715: Sodium 138, Potassium 4.2, Chloride 99, Carbon Dioxide 33 H, BUN 29 H, Creatinine 1.5 H, Estimated Creat Clear 65, Estimated GFR (MDRD) 48, Glucose 214 H, Calcium 9.3, Total Bilirubin 0.4, AST 10 L, ALT 21, Alkaline Phosphatase 128 H, Total Protein 6.9, Albumin 3.2 L, Globulin 3.7 H, Albumin/ Globulin Ratio 0.9 L, WBC 8.7, RBC 5.33, Hgb 14.7, Hct 46.9, MCV 87.9, RDW 13.0 , Plt Count 169, MPV 10.1, Gran % 62.9, Gran # 5.4, Lymphocytes % 28.8, Monocytes % 6.0, Eosinophils % 1.6, Basophils % 0.8, Lymphocytes # 2.5, Monocytes # 0.5, Eosinophils # 0.1, Basophils # 0.1, PUBS MCHC 31.6 L, MCH 27.8 06/24/17 0645: Sodium 136, Potassium 3.2 L, Chloride 100, Carbon Dioxide 30, BUN 23 H, Creatinine 1.5 H, Estimated Creat Clear 65, Estimated GFR (MDRD) 48, Glucose 191 H, Calcium 8.8, Troponin I 0.08 H, Triglycerides 105, Cholesterol 163, LDL Cholesterol 110.0, VLDL Cholesterol 21.0, HDL Cholesterol 32.0 L, WBC 13.7 H, RBC 4.72, Hgb 12.9 L, Hct 40.8 L, MCV 86.5, RDW 13.1, Plt Count 161, MPV 10.1, Gran % 71.5, Gran # 9.8 H, Lymphocytes % 21.2, Monocytes % 6.9, Eosinophils % 0.2, Basophils % 0.2, Lymphocytes # 2.9, Monocytes # 1.0, Eosinophils # 0.0, Basophils # 0.0, PUBS MCHC 31.7 L, MCH 27.4 06/24/175: Troponin I 0.09 H 11/11/17 1915: Creatine Kinase 107, CK-MB (CK-2) Rel Index 3.2, CK and CKMB Interp 3.4, Troponin I 0.07 H 06/23/171914: Sodium 132 L, Potassium 3.9, Chloride 96 L, Carbon Dioxide 27, BUN 27 H, Creatinine 1.9 H, Estimated Creat Clear 55, Estimated GFR (MDRD) 37, Glucose 348 H, Calcium 9.1, Total Bilirubin 0.4, AST 25, ALT 29, Alkaline Phosphatase 180 H, B-Natriuretic Peptide 1090 H, Total Protein 8.1, Albumin 3.5, Globulin 4.6 H, Albumin/Globulin Ratio 0.8 L, WBC 18.1 H, RBC 5.67, Hgb 15.9, Hct 50.2 , MCV 88.5, RDW 13.1, Plt Count 254, MPV 10.4, Gran % 74.1, Gran # 13.4 H, Lymphocytes % 17.4, Monocytes % 8.4, Eosinophils % 0.1, Basophils % 0.1, Lymphocytes # 3.1, Monocytes # 1.5 H, Eosinophils # 0.0, Basophils # 0.0, PUBS MCHC 31.7 L, MCH 28.0 Microbiology Date/Time Procedure - Status Source Growth 06/23 2310 Sputum Culture - RES SPUTUM 06/23 2310 Gram Stain - RES SPUTUM 06/23 2053 Anaerobic Blood Culture - CAN BLOOD Cancelled: PER 06/23 2053 Aerobic Blood Culture - CAN BLOOD Cancelled: PER 06/23 2053 Anaerobic Blood Culture - CAN BLOOD Cancelled: PER 06/23 2053 Aerobic Blood Culture - CAN BLOOD Cancelled: PER 06/23 1932 Anaerobic Blood Culture - CAN BLOOD Cancelled: PER PER RYAN MARMOLEJO 06/23 1932 Aerobic Blood Culture - CAN BLOOD Cancelled: PER PER RYAN MARMOLEJO 06/23 1932 Anaerobic Blood Culture - CAN BLOOD Cancelled: PER PER RYAN MARMOLEJO 06/23 1932 Aerobic Blood Culture - CAN BLOOD Cancelled: PER PER RYAN MARMOLEJO Plan Assessment: 1. Non-ST elevation myocardial infarction. Echocardiogram has been performed with results pending at this time. Discussed cardiac catheterization with the patient and he does not wish to proceed at this time but rather he would like to think about his options. Recommend adding aspirin 81 mg daily. 2. Pneumonia, on antibiotics 3. LDL 110 4. Diabetes mellitus, previously on metformin. 5. Hypertension, on atenolol, lisinopril and amlodipine/hydrochlorothiazide 6. CKD stage II with creatinine 1.5, GFR 48 ROLAND N-STEMI SCORE ROLAND N-STEMI SCORE Response Value Age of patient Less than 65 yrs 0 Number of risk factors for CAD Presence of 3 or more 1 Prior coronary artery stenosis (seen in angiography) Less than 50% 0 ST-Segment deviation on ECG (>1 min) Present 1 Prior aspirin intake No ASA in the last 7 days 0 Severe anginal chest pain 2 or more episodes/24hr 1 Elevated cardiac markers(CK-MB or troponin) Present 1 Total 4 Plan: 1. Continue current medical therapy as above. 2. I discussed proceeding with cardiac catheterization with the patient. He will discuss it with his spouse and decide on when or if he wants to proceed. at 0893
--- NOTE | 2017-06-25 11:40 | ACUTE CARE PROGRESS NOTE (QUA) ---
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 Pneumonia Patient condition Improving Plan: continue current care This inpt stay is expected to cross 2 MNs from start of care Yes Comments: will await pt decision about cath at 1140
--- NOTE | 2017-06-25 11:40 | ACUTE CARE PROGRESS NOTE (QUA) ---
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 Pneumonia Patient condition Improving Plan: continue current care This inpt stay is expected to cross 2 MNs from start of care Yes Comments: will await pt decision about cath at 1140
[2017-06-25] MEDS ORDERED: ASPIRIN 81MG TA81 MG PO (20:18)
--- NOTE | 2017-06-25 20:19 | RADIOLOGY REPORT PS360 ---
PROCEDURE: 2-D M-mode and color Doppler study INDICATIONS FOR THE TEST: Chest pain COPD+ Heart Murmur Tobacco Smoking+ Palpitations Fatigue Syncope Edema Hypertension+Diabetes Mellitus+ Rheumatic Fever SOB GILLIS Obesity Hyperlipidemia Family History HD Additional History PATIENT INFORMATION HEIGHT:64 WEIGHT:197 GENDER: Male B/P:264/139 2-D/M-MODE INTERPRETATION: 2-D MEASUREMENTS OBSERVED VALUES IN CMS Right Ventricular Dimension (RVDd) 2.9 Interventricular Septum (Thickness)(IVsd) 1.7 Left Ventricular Internal Dimensions(LVIDd) 4.9 Left Ventricular Posterior Wall (Thickness)(LVPWd) 1.4 Aortic Root 3.1 Aortic Cusp Separation 1.7 Left Atrial Dimensions (LAD) 4.3 2D 1. Left atrium is mildly enlarged, left ventricle is normal size, there is moderate concentric left ventricular hypertrophy, visually estimated ejection fraction 50% with no obvious regional wall motion abnormality. 2. The right atrium and right ventricle are mildly enlarged with normal contractility. 3. The aortic valve is thickened and calcified leaflet continue to display mobility. 4. The mitral and tricuspid valve leaflets are minimally thickened. 5. The pulmonic valve is poorly visualized. 6. There is small circumferential pericardial effusion noted DOPPLER INTERROGATION: Doppler interrogation of the aortic, mitral and tricuspid valve reveals presence of mild mitral and tricuspid regurgitation, tricuspid regurgitant jet velocity is insufficient for calculation of the right ventricular systolic pressure. Diastolic parameters is inconclusive. CONCLUSION: 1. Mildly left atrium, normal left ventricular size, moderate concentric left ventricular hypertrophy, visually estimated ejection fraction 50% with no obvious regional wall motion abnormality, diastolic parameters are inconclusive. 2. Mild mitral and tricuspid regurgitation 3. Small circumferential pericardial effusion noted.
[2017-06-25] MEDS ORDERED: CIPRO 500MG TA500 MG PO (20:20)
[2017-06-25] MEDS ORDERED: ASPIR-LOW81 MG PO (20:21)
--- NOTE | 2017-06-25 20:26 | DISCHARGE SUMMARY STANDARD ---
Demographics Admit date: 06/23/17 Discharge date: 06/25/17 History of present illness History of present illness 56 years old male smoker with chronic obstructive pulmonary disease. He is out of medication be due to medical insurance issues. He was seen yesterday in ed and refused admission and left ed ama. presented to ed with c/o sob and productive yellow sputum.He improved after one breathing treatment while in ed. patient admitted for pneumonia The above per Dr. Santa Bradford [facility] for Dr. James. The patient states he had sudden onset of chest pressure as if someone was sitting on his chest associated with shortness of breath prior to evaluation in the ER on both days. He LEFT the first day due to caring for her 4-year-old daughter with no to take over care of her. He return yesterday after having secured care for her. Patient feels better today denies any pain pressure or pain or tightness at this time. EKG is sinus with NSSTTW abnormalities. Troponins are abnormal consistent with non-STEMI in setting of pneumonia. Cardiology consulted for evaluation and recommendations. Patient has a history of diabetes, hypertension and a strong family history of coronary artery disease in his brother at age 36 of a mild myocardial infarction. Patient was markedly hypertensive upon admission due to lack of finances to afford his medication. Hospital Course Hospital Course: pt with good response to meds and breathing treatment and had cap on xray- he was seen by card and declined card cath- Mildly left atrium, normal left ventricular size, moderate concentric left ventricular hypertrophy, visually estimated ejection fraction 50% with no obvious regional wall motion abnormality, diastolic parameters are inconclusive. 2. Mild mitral and tricuspid regurgitation 3. Small circumferential pericardial effusion noted. Non-ST elevation myocardial infarction. Echocardiogram has been performed with results pending at this time. Discussed cardiac catheterization with the patient and he does not wish to proceed at this time but rather he would like to think about his options. Recommend adding aspirin 81 mg daily. 2. Pneumonia, on antibiotics 3. LDL 110 4. Diabetes mellitus, previously on metformin. 5. Hypertension, on atenolol, lisinopril and amlodipine/hydrochlorothiazide 6. CKD stage II with creatinine 1.5, GFR 48 ROLAND N-STEMI SCORE was 4 Discharge diagnoses Problem List 1. NSTEMI (non-ST elevated myocardial infarction) 2. Community acquired bacterial pneumonia 3. Tobacco use 4. Diabetes Medications Medications: Discharge meds are as noted. Comment: will ask pt to come to office next week and we will obtain inhalers and will discuss card issues Follow up Follow up in office in: 7 DAYS with: Santa Bradford APRN at [id number]
== END 2017-06-25 20:40 | disposition home or self-care (01) | DRG 193 ==
LOC: ER 19:01 → 2ND 20:03
PROVIDERS: Emergency Medicine
DX: J18.9 Pneumonia, unspecified organism (principal); I21.4 Non-ST elevation (NSTEMI) myocardial infarction; J44.9 Chronic obstructive pulmonary disease, unspecified; E11.9 Type 2 diabetes mellitus without complications; I10 Essential (primary) hypertension; Z72.0 Tobacco use; I08.1 Rheumatic disorders of both mitral and tricuspid valves